=== PATIENT | male | born 1950 | race Caucasian/White ===

== ENCOUNTER → 2018-01-04 | Outpatient (CLI) | payer MEDICARE, BC ==
--- NOTE | 2018-01-04 15:51 | RADIOLOGY IMAGING REPORT ---
FACILITY: [facility] PATIENT NAME: Guy Ortiz : 1950 MR: [id number] V: [id number] EXAM DATE: ORDERING PHYSICIAN: BYRON RAMIREZ TECHNOLOGIST: Location: [facility] [place] Patient: Guy Ortiz : 1950 Visit/Account:[id number] Date of Sevice: 01/04/2018 DEXA Scan Clinical history: Osteopenia. Comparison: None available. LUMBAR SPINE: The bone mineral density (BMD) measured from L1-L4 correlates with a Z-score 0.6 and a T-score of -0. 1 which is Normal as defined by the World Health Organization. The corresponding risk of fracture in the lumbar spine is Not increased compared with a young adult reference population. HIP: Bone mineral density (BMD) measured in the Left total hip region correlates with a Z-score -0.8 and a T-score of -1.5 which is osteopenia as defined by the World Health Organization. The corresponding risk of fracture in the hip is 3 times increased compared with a young adult reference population. T score left femoral neck -1.7 Bone mineral density (BMD) measured in the Femoral Neck region measures 0.853 g/cm2. Impression: 1. Lumbar spine: Normal. 2. Left Hip: Osteopenia. 3. Femoral Neck: Bone Mineral Density is 0.853 g/cm2 The next DEXA scan of this patient should include the following sites: L1-L4 and the left hip. FRAX? WHO Fracture Risk Assessment Tool link: <http://www.shef.ac.uk/FRAX/tool.jsp?locationValue=9> PLEASE NOTE: 1) The World Health Organization defines low BMD as follows: T-score Normal > -1 Osteopenia < -1 and > -2.5 Osteoporosis < -2.5 without fractures Established osteoporosis < -2.5 with fractures 2) In general, you may wish to consider: Diagnosis Treatment Follow-up DEXA Normal BMD Prevention 2-3 years Osteopenia Prevention/therapy 1-2 years Osteoporosis Therapy Yearly 3) Fracture risk estimated from the T-score is more accurate for vertebral fractures (often spontane ous) than for hip fractures. Report Dictated By: Katherine Macdonald MD at 01/04/2018 3:46 PM Report E-Signed By: Katherine Macdonald MD at 01/04/2018 3:47 PM WSN:[email or web address]
--- NOTE | 2018-01-04 15:54 | RADIOLOGY IMAGING REPORT ---
FACILITY: [facility] PATIENT NAME: Guy Ortiz : 1950 MR: [id number] V: [id number] EXAM DATE: ORDERING PHYSICIAN: BYRON RAMIREZ TECHNOLOGIST: Location: [facility] [place] Patient: Guy Ortiz : 1950 Visit/Account:[id number] Date of Sevice: 01/04/2018 CAROTID HISTORY: Carotid atherosclerosis COMPARISON: None. FINDINGS: Grayscale, duplex and color Doppler interrogation of the extracranial carotid and vertebral arteries was performed bilateral. On the right, peak systolic velocities within the common and internal carotid arteries are 103 and 12 0 cm/sec respectively. There is a small hard plaque in the mid right common carotid artery. There i s a mild to moderate amount of plaque at the right carotid bulb extending into the proximal right int ernal and external carotid arteries. Antegrade flow within the common, internal and external carotid arteries as well as vertebral artery. ICA/CCA ratio 1.3. On the left, peak systolic velocities within the common and internal carotid arteries are 134 and 106 cm/sec respectively. There is a moderate amount of plaque at the left carotid bulb and a moderate t o large amount of plaque in the proximal left internal carotid artery. Also noted is a long hard magy que in the mid to distal left common carotid artery. Antegrade flow within the common, internal and external carotid arteries as well as vertebral artery. ICA/CCA ratio 1. IMPRESSION: Atherosclerotic plaque as described above including the carotid bulbs, common carotid arteries and in ternal and external carotid arteries. No hemodynamically significant lesions are identified by veloc ity criteria. Velocity criteria are extrapolated from diameter data as defined by the Society of Radiologists in [facility] Consensus Conference Radiology 2003; 229;340-346 Report Dictated By: Katherine Macdonald MD at 01/04/2018 3:47 PM Report E-Signed By: Katherine Macdonald MD at 01/04/2018 3:50 PM WSN:[email or web address]
== END ==
LOC: US 01:35
PROVIDERS: ATTEND Nurse Practitioner Family
DX: Z01.818 Encounter for other preprocedural examination (principal); M85.88 Other specified disorders of bone density and structure, other site; I65.23 Occlusion and stenosis of bilateral carotid arteries
CPT/HCPCS: 77080; 93880